=== PATIENT | female | born 1940 | race Hispanic/Latino ===

== ENCOUNTER 2016-10-21 11:30 | Emergency (ER) | payer MEDICARE ==
[2016-10-21 11:41] VITALS: TEMP 98.8
--- NOTE | 2016-10-21 12:01 | ED PDOC ---
Arrival/HPI - General Chief Complaint: Psychiatric Evaluation Time Seen by Provider: 10/21/16 11:33 Historian: Patient - History of Present Illness Narrative History of Present Illness (Text): 10/21/16 11:45 Jessika Mathews is a 76 year old female who was sent to ER by [employer] to find a Mexican-speaking psychiatrist. Patient's [id number] states that patient needs a regular psychiatrist for evaluation and medication for Alzheimer 's Disease. Patient has no other complaints at this time. Modifying Factors (Text): none Context: Other Associated Symptoms (Text): none Past Medical History - Provider Review Nursing Documentation Reviewed: Yes - Neurological Hx Neurological Disorder: Yes Hx Alzheimer's Disease: Yes - Psychiatric Hx Substance Use: No Family/Social History - Physician Review Nursing Documentation Reviewed: Yes Family/Social History: No Known Family HX Smoking Status: Never Smoked Hx Alcohol Use: No Hx Substance Use: No Allergies/Home Meds Allergies/Adverse Reactions: Allergies No Known Allergies Allergy (Verified 10/21/16 11:41) Home Medications: Home Meds Medication Instructions Recorded Confirmed Unobtainable 10/21/16 10/21/16 Review of Systems - Physician Review All systems were reviewed & negative as marked: Yes - Review of Systems Constitutional: absent: Fevers Eyes: absent: Vision Changes ENT: absent: Hearing Changes Respiratory: absent: SOB Cardiovascular: absent: Chest Pain Gastrointestinal: absent: Abdominal Pain Musculoskeletal: absent: Arthralgias Neurological: absent: Headache Endocrine: absent: Diaphoresis Hemo/Lymphatic: absent: Adenopathy Psychiatric: absent: Anxiety Physical Exam Vital Signs Reviewed: Yes Vital Signs Temp Pulse Resp BP Pulse Ox 10/21/16 13:31 80 17 135/80 98 10/21/16 11:41 98.8 F 78 16 134/84 97 Temperature: Afebrile Blood Pressure: Normal Pulse: Regular Respiratory Rate: Normal Appearance: Positive for: Well-Appearing, Non-Toxic, Comfortable Pain Distress: None Mental Status: Positive for: Alert and Oriented X 3 - Systems Exam Head: Present: Atraumatic, Normocephalic Pupils: Present: PERRL Extroacular Muscles: Present: EOMI Conjunctiva: Present: Normal Mouth: Present: Moist Mucous Membranes Neck: Present: Normal Range of Motion Respiratory/Chest: Present: Clear to Auscultation, Good Air Exchange. No: Respiratory Distress, Accessory Muscle Use Cardiovascular: Present: Regular Rate and Rhythm, Normal S1, S2. No: Murmurs Abdomen: Present: Normal Bowel Sounds. No: Tenderness, Distention, Peritoneal Signs Back: Present: Normal Inspection Upper Extremity: Present: Normal Inspection. No: Cyanosis, Edema Lower Extremity: Present: Normal Inspection. No: Edema Neurological: Present: GCS=15, CN II-XII Intact, Speech Normal Skin: Present: Warm, Dry, Normal Color. No: Rashes Psychiatric: Present: Alert, Oriented x 3, Normal Insight, Normal Concentration Medical Decision Making ED Course and Treatment: 10/21/16 11:43 Impression: 76 year old female sent to [facility] by [facility] for a Mexican-speaking psychiatrist. dr bolden was in emergency room evaluating another patient. discussed with dr bolden who saw pt bedside. Progress Notes: 10/21/16 13:[address] Bolden. Patient clear for discharge. 10/21/16 15:32 - Scribe Statement The provider has reviewed the documentation as recorded by the Scribe Ely Perez Provider Scribe Attestation: All medical record entries made by the Scribe were at my direction and personally dictated by me. I have reviewed the chart and agree that the record accurately reflects my personal performance of the history, physical exam, medical decision making, and the department course for this patient. I have also personally directed, reviewed, and agree with the discharge instructions and disposition. Disposition/Present on Arrival - Present on Arrival Any Indicators Present on Arrival: No History of DVT/PE: No History of Uncontrolled Diabetes: No Urinary Catheter: No History of Decub. Ulcer: No History Surgical Site Infection Following: None - Disposition Have Diagnosis and Disposition been Completed?: Yes Diagnosis: Alzheimer disease Disposition: HOME/ ROUTINE Disposition Time: 03:00 Condition: STABLE Discharge Instructions (ExitCare): Dementia (ED) Additional Instructions: please follow up as instructed by pes worker. return to emergency room with worsening symptoms or concerns. Referrals: Douglas Espino MD, PhD [Primary Care Provider] - Follow up with primary Kimi Mckeon MD [Staff Provider] - Follow up with primary Forms: [employer] (Mongolian)
[2016-10-21 13:33] VITALS: BP 135/80; PULSE 80; RESP 17; O2SAT 98
--- NOTE | 2016-10-21 16:28 | CON ---
PSYCHIATRIST: Dr. England. HISTORY OF PRESENT ILLNESS: Shortly, the patient is 76-year-old female with advanced dementia. The patient was found by [facility] for evaluation of medication. The patient was brought in by her family and power of counter hop, Mr. Reid Campoverde, phone number is [phone]. The patient was seen and examined. Discussed with [facility] psychiatrist, Dr. García. Medications reviewed. The patient's family as well as patient herself were explained about risks, benefits and alternatives all of the medication. The patient presented to be confused, was repeating breathing, breathing. When this telegraphic typewriter mechanic asked what does she mean by that, the patient was not able to explain, but based on the patient's family collaterals, nursing staff as well as physician were checking patient's lungs and asked her breathe and that is why the patient kept repeating the same word all over and over again. The patient presented to calm and cooperative. As per family, the patient is functioning at her baseline. Right now, the patient's family is looking for Moroccan speaking outpatient provider. This telegraphic typewriter mechanic educated the patient and the patient's family that this telegraphic typewriter mechanic does not have outpatient provider services. This telegraphic typewriter mechanic evaluated the patient on her chilkoot language and Moroccan language. Besides that there are no other complaints. As per collateral information from Dr. García, the patient was extremely agitated. The patient was refusing to take a shower, but was redirectable. This telegraphic typewriter mechanic reviewed medication list. The patient is on alprazolam 0.25 mg daily as well as Trileptal 300 mg daily, also Milontin 28/10 mg daily. The patient also is on Seroquel extended release 50 mg at the nighttime. This telegraphic typewriter mechanic offered to increase the dose to 75 mg at nighttime. The patient's family was in agreement with that POA, included vitamin B12 as well as acetaminophen. This telegraphic typewriter mechanic educated the patient's family about the plan to increase further Seroquel, and we tried to provide prescription for additional 25 mg at the nighttime. PAST PSYCHIATRIC HISTORY: The patient does not have past psychiatric history, but suffered from advanced dementia. PHYSICAL EXAMINATION: VITAL SIGNS: Reviewed, stable. MEDICATIONS: Reviewed. LABS: Reviewed. There are no new labs. Discussed with emergency room physician. MENTAL STATUS EXAMINATION: The patient appears to be alert, but confused. Intense eye contact. The patient was not able to explain how does she feel. The patient kept repeating breathing, breathing. The patient was not able comprehend questions about suicidal or homicidal ideation. Insight and judgement are severely impaired. Impulses seem to be well controlled at the movement of the interview. IMPRESSION: Alzheimer's dementia, advanced. Other than thatthe patient seems to be healthy. PLAN: This telegraphic typewriter mechanic increased the dose of Seroquel. The patient's family was educated about risk of stroke. This telegraphic typewriter mechanic discussed this with the patient's POA, Gilles, and the patient [id number]. They will continue all of the psychotropic medications, alprazolam, Trileptal, donepezil, Seroquel, vitamin B12 and acetaminophen. This telegraphic typewriter mechanic discussed case with Dr. García. The patient's family was advised in case of the worsening of the symptoms or in case of agitated and restless behavior which will last continuously bring patient back to the hospital. They verbalized understanding. This telegraphic typewriter mechanic also provided prescription for Seroquel 25 mg at the nighttime plus 50 mg at the nighttime. The patient will be continuing that. Total dose of the Seroquel will be 75 mg at the nighttime. Thank you very much for letting me participate in care of the patient. Kimi Mckeon MD
== END 2016-10-21 14:00 | disposition home or self-care (01) ==
LOC: ED 11:30 → MERGE 11:30 → ED 14:00
DX: F02.80 Dementia in other diseases classified elsewhere, unspecified severity, without behavioral disturbance, psychotic disturbance, mood disturbance, and anxiety (principal); G30.9 Alzheimer's disease, unspecified